=== PATIENT | male | born 1965 | race Two or more races ===

== ENCOUNTER 2025-04-12 03:38 | Emergency (ER) | payer SELFPAY ==
[2025-04-12 03:50] VITALS: BP 131/84; PULSE 84; PULSE 88; RESP 16; RESP 17; TEMP 36.7; O2SAT 98; O2SAT 99; BMI 27.4
--- NOTE | 2025-04-12 04:22 | EDNOTE_ITS ---
ED Psych RME/HPI General Chief Complaint: Suicidal Stated Complaint: MENTAL EVAL Time Seen by Provider: 04/12/25 04:21 Arrival date/time: 04/12/25 03:38 RME / HPI RME / HPI Narrative: See [facility] for Dr. Castro's HPI Documentation. Past Medical History Past Medical History PSYCHO/SOCIAL: Positive Bipolar Disorder, Depression and Anxiety Social History HOUSING: Homeless ED Exam Narrative Physical exam: See [facility] for Dr. Castro's Physical Exam Documentation. Course Quality Measures none Orders Category Date Time Status Acetaminophen Stat Lab 04/12/25 04:22 Ordered Alcohol, Blood Medical Stat Lab 04/12/25 04:22 Ordered Bilirubin,Direct Stat Lab 04/12/25 04:22 Ordered CBC Stat Lab 04/12/25 04:22 Ordered CMP [Comprehensive Metabolic Panel] Stat Lab 04/12/25 04:22 Ordered Drug Screen,Urine Stat Lab 04/12/25 04:22 Ordered Magnesium Stat Lab 04/12/25 04:22 Ordered Salicylate Stat Lab 04/12/25 04:22 Ordered TSH [Thyroid Stimulating Hormone] Stat Lab 04/12/25 04:22 Ordered UA, C/S IF [Urinalysis, C/S if Indicated] Stat Lab 04/12/25 04:22 Ordered Referral Play Leader NOW 04/12/25 04:21 Active Vital Signs Vital signs: Vital Signs Temperature 98.1 F 04/12/25 03:50 Pulse Rate 84 04/12/25 03:50 Respiratory Rate 17 04/12/25 03:50 Blood Pressure 131/84 H 04/12/25 03:50 Pulse Oximetry (%) 98 04/12/25 03:50 Oxygen Delivery Method Room Air 04/12/25 03:50 Psych [facility] Narrative [facility] Narrative:: This section includes all my notes and documentations, including HPI, PE, and ED course. Reese Castro MD HPI: 59 y/o male with Hx of Homelessness, Depression, Anxiety, and BPD BIB EMS with suicidal ideations. Reports chronic thoughts of hurting himself. But since yesterday, he has been thinking of jumping in the middle of a freeway. No thoughts of hurting other people. No hallucinations. No current medications. No other complaints. ROS: All negative except as documented in HPI. Physical Exam: General: Alert and oriented. Eyes: Conjunctivae and lids clear. EOMI. PERRL. ENT: No nasal congestion. Neck: Supple. Heart: RRR. Lungs: No respiratory distress. Good air movement. No rhonchi, wheezing, rales. Skin: Warm and dry. Neuro: Alert and oriented X 3. Cranial Nerves II-XII grossly intact. No peripheral motor deficits. I reviewed EMS notes. I ordered blood/urine tests and referral for evaluation by our ED home care giver. At 6 AM on 04/12/2025, the care of the patient was transferred to Dr. Rubio. Reese Castro MD Patient data External records reviewed:: [facility] previous records (No prior ED records available for review) and EMS form Clinical information provided by:: patient and EMS Social determinants that could affect healthcare access:: housing (Homeless) Patient has the following chronic illnesses:: BPD, Depression, Anxiety How is presenting disease/condition affected by chronic disease/condition?: exacerbated by Evaluation data The following diagnostics were reviewed and interpreted by me:: lab results Lab and/or radiology exams considered but not ordered:: None Interpretation Summary: Diagnostic tests are pending. Medications / Prescriptions Medications or Prescriptions considered but not ordered:: None Medication administrations:: None Consultations Consultation(s) initiated? (list below): No Diagnosis Psych Differential Diagnosis: acute psychosis, chronic schizophrenia, suicidal ideation, bipolar disorder, depression, drug-induced psychotic disorder and acute anxiety Most likely diagnosis given after review of the tests above:: Diagnostic tests are pending. Admission Indicated Admission indicated?: not indicated Explain why admission is indicated or not indicated:: No psychiatric service at this facility. Admission Request Was there a request for admission?: No Disposition Plan Disposition Plan: other (specify) ( At 6 AM on 04/12/2025, the care of the patient was transferred to Dr. Rubio. ) Discharge Plan Problem List Clinical Impression: Suicidal ideation Patient/Caregiver Discharge Instructions Print Language: Indonesian
[2025-04-12 05:00] LABS: Basophils # (Auto) 0.0 Thou/mm3 (0.0-0.2); Basophils % (Auto) 0 % (0-2.5); Eosinophils # (Auto) 0.0 Thou/mm3 (0.0-0.5); Eosinophils % (Auto) 0 % (0-10); Hematocrit 50.7 % (41.0-53.0); Hemoglobin 17.2 g/dL (13.5-16.0); Immature Granulocytes Auto 0.06 Thou/mm3 (0.00-0.00); Lymphocytes # (Auto) 1.9 Thou/mm3 (1.0-4.8); Lymphocytes % (Auto) 18 % (10-50); Mean Corpuscular HGB Conc 33.9 g/dl (31.0-37.0); Mean Corpuscular Hemoglobin 31.3 pg (25.0-35.0); Mean Corpuscular Volume 92 fL (80-100); Monocytes # (Auto) 0.6 Thou/mm3 (0.0-0.8); Monocytes % (Auto) 6 % (0-12); Neutrophils # (Auto) 7.6 Thou/mm3 (1.8-7.7); Neutrophils % (Auto) 75 % (37-80); Nucleated Red Blood Cell # 0.00 Thou/mm3 (0.00-0.00); Nucleated Red Blood Cell % 0 /100 WBC (0); Platelet Count 249 Thou/mm3 (140-440); RDW Standard Deviation 42.3 fL (35.1-43.9); Red Blood Count 5.49 Miln/mm3 (4.50-5.90); White Blood Count 10.2 Thou/mm3 (3.8-10.6)
[2025-04-12 05:07] LABS: Collection Type, Urine Clean Catch; Squamous Epithelial Cell,Urine 0 /hpf (0-5)
[2025-04-12 05:15] LABS: Bacteria,Urine Rare; Bilirubin,Urine Negative (Negative); Blood,Urine Negative (Negative); Clarity,Urine Clear (Clear/Hazy); Color,Urine Lt-Yellow (Lt Yel-Yel); Culture Indicated,Urine Not Indicated; Glucose, Urine Negative (Negative); Ketones,Urine Negative (Negative); Leukocyte Esterase,Urine Negative (Negative); Nitrite,Urine Negative (Negative); PH,Urine 6.0 (5.0-7.0); Protein,Urine Negative (Neg - Trace); RBC,Urine 1 /hpf (0-3); Specific Gravity,Urine 1.014 (1.001-1.035); Urobilinogen,Urine Negative mg/dL (0.0-1.0); WBC,Urine 2 /hpf (0-5)
[2025-04-12 05:28] LABS: Acetaminophen < 2.0 mcg/mL (10.0-20.0); Alanine Aminotransferase 26 U/L (10-49); Albumin, Serum 5.0 gm/dL (3.4-4.8); Albumin/Globulin Ratio 1.7 (1.2-2.2); Alcohol, Blood Medical 59.7 mg/dL (0-10.0); Alkaline Phosphatase 90 U/L (46-116); Anion Gap 10 (7-16); Aspartate Amino Transferase 39 U/L (0-34); BUN/Creatinine Ratio 11 Ratio (12-20); Bilirubin,Direct 0.2 mg/dL (0.0-0.3); Bilirubin,Total 0.5 mg/dL (0.3-1.2); Blood Urea Nitrogen 10 mg/dL (9-23); Calcium 9.4 mg/dL (8.3-10.6); Calcium (Corrected) 9.4 mg/dL (8.5-10.1); Carbon Dioxide 26.1 mMol/L (20.0-31.0); Chloride 108 mMol/L (98-107); Creatinine (Component) 0.9 mg/dL (0.6-1.3); Estimated Creatinine Clearance 84.3 mL/min (>60); Globulin 2.9 gm/dL (2.3-3.5); Glucose 84 mg/dL (74-106); Magnesium 2.1 mg/dL (1.6-2.6); Osmolality,Calculated 284 (275-295); Potassium 3.7 mMol/L (3.4-5.1); Salicylate < 3.0 mg/dL; Sodium 144 mMol/L (136-145); Thyroid Stimulating Hormone 0.83 uIU/mL (0.55-4.78); Total Protein 7.9 gm/dL (5.7-8.2); eGFR > 60 See Note
[2025-04-12 05:29] LABS: Amphetamine/Methamp Scrn,U Positive (Negative); Barbiturate Screen,Urine Negative (Negative); Benzodiazepines Screen,Urine Negative (Negative); Benzoylecgonine Screen, Ur Negative (Negative); Fentanyl Screen,Urine Negative (Negative); Opiate Screen,Urine Negative (Negative); THC Screen,Urine Positive (Negative)
--- NOTE | 2025-04-12 06:48 | PC.NURSE ---
THIS RN ENTERED PATIENTS ROOM. PATIENT WAS STANDING BY THE DOOR. PER MOM SHE IS SAYING SHE IS GOING TO LEAVE. THIS RN INFORMED PATIENT AND MOTHER PATIENT US UNABLE TO LEAVE. PER PATIENT SHE ARGUING WITH ME I DONT WANT HER HERE ANYMORE. . THIS RN ASKED PATIENT MOTHER TO SIT OUTSIDE THE ROOM WHILE PATIENT CALMED DOWN. PER PATIENT I JUST WANT HER GONE I DONT WANT HER HERE IF WE ARE ARGUING. . PER PATIENT MOTHER I AM JUST GOING TO GO HOME AND HAVE THEM CALL ME AND PLEASE TELL THEM THE REASON I AM NOT HERE. . PATIENT MOTHER PROCEEDED TO EXIT THE ROOM. PATIENT CALMLY LAID BACK IN BED.
[2025-04-12 07:23] VITALS: BP 138/85; PULSE 97; RESP 18; TEMP 36.9; O2SAT 99
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
--- NOTE | 2025-04-12 08:41 | EDNOTE_ITS ---
Emergency Room Addendum Addendum Narrative: 0600: Care assumed from Dr. Castro, the previous shift emergency physician. Past medical, surgical, social and family history reviewed. Vitals and home medications reviewed. I will assume the care of the patient at this time, pending mental health evaluation. Patient had been medically cleared by previous physician. Please refer to the emergency department record for history and examination from initial visit.?The following addendum documentation note is intended to reflect any pending information, findings, or radiology results not included in the patient?s initial chart. Patient has been accepted by Dr. Alberto at [facility].
[2025-04-12 10:10] VITALS: BP 129/79; PULSE 86; RESP 17; TEMP 37; O2SAT 100
--- NOTE | 2025-04-12 10:25 | PC.NURSE ---
SS Zully in won; with pt.
[2025-04-12 12:42] VITALS: BP 130/74; PULSE 94; RESP 18; TEMP 36.9; O2SAT 98
[2025-04-12 15:56] VITALS: BP 118/77; PULSE 84; RESP 18; TEMP 36.8; O2SAT 99
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
--- NOTE | 2025-04-12 17:01 | PC.NURSE ---
called Jacek at [facility] [phone], gave nurse to nurse report. Jacek states thank you.
== END 2025-04-12 18:18 ==
PROVIDERS: Emergency Medicine; Emergency Provider Emergency Medicine
DX: R45.851 Suicidal ideations (principal); Z59.00 Homelessness unspecified; Z75.1 Person awaiting admission to adequate facility elsewhere
CPT/HCPCS: 36415; 80053; 80307; 80320; 80329; 81001; 82248; 83735; 84443; 85025; 96127; 99283; G0480